=== PATIENT | male | born 1970 | race African-American/Black ===

== ENCOUNTER 2017-01-12 14:13 | Emergency (ER) | payer OTHER ==
[~2017-01-12] VITALS: Ht 185.4 cm; Wt 116.6 kg
[2017-01-12] MEDS ORDERED: NEURONTIN300 MG PO (15:45)
[2017-01-12 16:04] LABS: POINT-OF-CARE METER ID UU13113702
[2017-01-12 16:24] VITALS: BP 136/99
== END 2017-01-12 16:24 | disposition home or self-care (01) ==
LOC: EME 14:13
PROVIDERS: Nurse Practitioner Family
DX: M72.2 Plantar fascial fibromatosis (principal); G62.9 Polyneuropathy, unspecified; Z76.0 Encounter for issue of repeat prescription
CPT/HCPCS: 82948; 99281; 99283

== ENCOUNTER 2017-10-24 08:13 | Emergency (ER) | payer OTHER ==
[~2017-10-24] VITALS: Ht 185.4 cm; Wt 114.9 kg
[~2017-10-24 08:13] MED LIST: NEURONTIN300 MG PO
[2017-10-24 08:42] LABS: HEMATOCRIT 43.7 % (38.0-50.0); MCH 32.1 PG (29.0-34.0); MCHC 34.3 G/DL (30.0-36.0); MCV 93.6 FL (86-99); RBC DIS.WIDTH-CV 13.3 % (11.8-14.6); RBC DIS.WIDTH-SD 45.3 % (39-53); RED BLOOD COUNT 4.67 M/uL (4.00-5.50); WHITE BLOOD COUNT 6.8 K/uL (4.1-10.2)
[2017-10-24 09:15] LABS: APPEARANCE CLEAR ((CLEAR)); BILIRUBIN NEGATIVE; BLOOD SMALL; COLOR YELLOW ((YELLOW)); GLUCOSE (STRIP) NEGATIVE; KETONES NEGATIVE; LEUKOCYTES TRACE; NITRITE NEGATIVE; PROTEIN (STRIP) 30; SPECIFIC GRAVITY 1.019 (1.000-1.030)
[2017-10-24 09:21] LABS: CHLORIDE 105 MEQ/L (99-109); CREATININE 1.2 MG/DL (0.6-1.3); GFR ESTIMATE (CALCULATED) > 59 mL/min/ (58.99-99999); GLUCOSE 97 mg/dL (70-99); POTASSIUM 4.1 MEQ/L (3.7-5.4); SODIUM 140 MEQ/L (136-147); UREA NITROGEN (BUN) 12 mg/dL (9-23)
[2017-10-24 09:27] LABS: PLAT.SUFFICIENCY ADEQUATE; PLATELET COUNT 240 K/uL (156-360)
[2017-10-24 09:38] LABS: BACTERIA NONE SEEN /HPF; EPITHELIAL CELLS RARE /HPF; HYALINE CASTS 0-5 /LPF; MUCUS 1+ /LPF; UCUL ADDED? YES; WHITE BLOOD CELLS 20-30 /HPF (0-5)
[2017-10-24] MEDS ORDERED: PERCOCET 5/31 TABLET PO (10:58)
[2017-10-24] MEDS ORDERED: CIPRO500 MG PO (10:58)
[2017-10-24] MEDS ORDERED: FLOMAX0.4 MG PO (10:58)
[2017-10-24] MEDS ORDERED: ZOFRAN ODT4 MG PO (10:58)
[2017-10-24 11:40] VITALS: BP 122/86
== END 2017-10-24 11:40 | disposition home or self-care (01) ==
LOC: EME 08:13
DX: N20.0 Calculus of kidney (principal); R11.2 Nausea with vomiting, unspecified; N39.0 Urinary tract infection, site not specified; K57.30 Diverticulosis of large intestine without perforation or abscess without bleeding; I10 Essential (primary) hypertension; Z72.0 Tobacco use
CPT/HCPCS: 74176; 80048; 81003; 85027; 87086; 99281; 99285; J1885; J2405; J7030